=== PATIENT | male | born 1965 | race Caucasian/White ===

== ENCOUNTER 2019-03-01 11:14 | Day surgery (SDC) | payer OTHER, SELFPAY ==
[2019-03-01 11:48] VITALS: BP 143/89; PULSE 70; RESP 16; TEMP 36.8; O2SAT 97; BMI 27.0
[2019-03-01] MEDS: SODIUM CHLORIDE 0.9% 1,000 ML 100 ML IV (12:08)
--- NOTE | 2019-03-01 12:32 | PM.HP.1 ---
History of Present Illness Date Patient Seen: 03/01/19 Time Patient Seen: 12:32 Chief complaint: [id number] Narrative: Colorectal cancer screening. First colonoscopy Patient History Medical History (Updated 03/01/19 @ 12:32 by Mayela Lara MD) GERD (gastroesophageal reflux disease) (Acute) Surgical History (Updated 12/07/17 @ 05:45 by Elise Borrego MD) Status post tonsillectomy and adenoidectomy Social History household members: spouse Family & Social History Social History: household members spouse Meds Home Medications Medication Instructions Recorded Confirmed Type pantoprazole 40 mg DAILY 03/01/19 03/01/19 History Allergies Allergy/AdvReac Type Severity Reaction Status Date / Time No Known Drug Allergies Allergy Verified 03/01/19 11:47 Exam Vital Signs (past 8 hours): - 03/01/19 11:48 Temperature 98.2 F Pulse Rate 70 Respiratory Rate 16 Blood Pressure 143/89 H Pulse Oximetry 97 Oxygen Delivery Method Room Air Narrative Exam Narrative: Oropharynx free of lesions Chest clear to auscultation percussion Cardiac exam reveals no S3 or murmur Assessment & Plan Assessment & Plan narrative: For screening colonoscopy. Risks, benefits, alternatives have been explained.
--- NOTE | 2019-03-01 12:33 | PM.OP.ENDO ---
Operative Date/Time/Diagnoses Date of procedure: 03/01/19 Time of procedure: 12:33 Pre-op diagnosis: See indication and findings Procedure & Clinicians Study performed: Colonoscopy Same procedure as scheduled: Yes Indications: 1st screening colonoscopy Surgeon: Mayela Lara Procedure Notes Procedure in detail: After informed consent was obtained the patient was placed in left lateral decubitus position. The video colonoscope was introduced the rectum slowly advanced to the cecum. On slow withdrawal mucosa was carefully examined. The scope was removed. The patient tolerated procedure well. Preparation was good. Blood loss none Complications none Sedation Total sedation time 16 minutes Versed 9 mg fentanyl 100 micro g IV titration Findings 1. Normal colonoscopy to cecum Patient will not need follow-up colonoscopy for 10 years.
[2019-03-01] MEDS: MIDAZOLAM 5 MG/5 ML VIAL IV (14:03)
[2019-03-01] MEDS: fentaNYL 250 MCG/5 ML INJ IV (14:03)
[2019-03-01 14:07] VITALS: BP 114/74; PULSE 75; RESP 13; TEMP 36.6; O2SAT 96
[2019-03-01 14:11] VITALS: BP 127/84; PULSE 77; RESP 16; O2SAT 96
[2019-03-01 14:17] VITALS: BP 123/91; PULSE 77; RESP 17; O2SAT 96
--- NOTE | 2019-03-01 14:19 | SUR.PHASEI ---
Wide awake, talking since arrival to PACU. HOB elevated, drinking water. Denies discomfort.
[2019-03-01 14:21] VITALS: BP 127/90; PULSE 71; RESP 14; TEMP 36.9; O2SAT 97
== END 2019-03-01 14:40 | disposition home or self-care (01) ==
LOC: ENDO 11:16
PROVIDERS: PCP General Practice; Visit Provider Internal Medicine Gastroenterology
PROC: 0DJD8ZZ Inspection of Lower Intestinal Tract, Via Natural or Artificial Opening Endoscopic (ICD-10-PCS; CPT 45378; principal; 2019-03-01 13:30)
DX: Z12.11 Encounter for screening for malignant neoplasm of colon (principal)
CPT/HCPCS: 45378; J2250; J3010

== ENCOUNTER → 2021-07-24 09:43 | Outpatient (CLI) | payer OTHER, SELFPAY ==
--- NOTE | 2021-07-24 09:46 | DI.US.S_ITS ---
PROCEDURE: US ABDOMEN LIMITED INDICATIONS: RULE OUT GALLSTONES TECHNIQUE: Real-time focused scanning was performed of the abdomen, with image documentation. COMPARISON: None. FINDINGS: Liver is normal in size. Liver has diffusely increased echogenicity. Main portal vein is patent with hepatopetal flow. Main portal vein measures 14.5 millimeters. Gallbladder is sonographically normal. No gallstones. No gallbladder wall thickening. No pericholecystic fluid. No sonographic Farr sign. Biliary tree is nondilated. Common bile duct measures 4.5 millimeters. Head and body pancreas are sonographically normal. Tail of pancreas is not seen due to bowel gas cannot be evaluated. IMPRESSION: 1. No sonographic evidence of cholelithiasis or cholecystitis. If there is continued clinical concern for cholecystitis, a nuclear medicine HIDA scan should be considered for further evaluation. 2. Echogenic liver. Finding typically represents fatty infiltration; however, finding is nonspecific and correlation with clinical and laboratory findings is recommended to exclude other etiologies including hepatic cirrhosis. Dictated by: Cathy Olmos MD, PhD on 07/24/2021 at 12:08 Approved by: Cathy Olmos MD, PhD on 07/24/2021 at 12:09
== END ==
PROVIDERS: Referring Provider Surgery; Visit Provider Surgery
DX: R10.9 Unspecified abdominal pain (principal)
CPT/HCPCS: 76705

== ENCOUNTER → 2021-08-05 14:17 | Outpatient (CLI) | payer OTHER, SELFPAY ==
--- NOTE | 2021-08-05 14:19 | DI.CT.S_ITS ---
PROCEDURE: CT ABDOMEN PELVIS W CON INDICATIONS: Abdominal pain TECHNIQUE: After the administration of oral and IV contrast, axial sections were acquired from the lung bases to the pubic symphysis. Coronal and sagittal reformats were performed. For radiation dose reduction, the following was used: automated exposure control, adjustment of mA and/or kV according to patient size. COMPARISON: [facility], , US ABDOMEN LIMITED, 07/24/2021, 9:50. FINDINGS: Image quality: Excellent. Lung bases: Unremarkable. Heart: No significant findings. ABDOMEN: Liver: Normal size. Mild hepatic steatosis. Gallbladder: Unremarkable. Biliary ducts: Unremarkable. Pancreas: There is possible mass or an artifact in the area of the uncinate process or the horizontal segment of the duodenum. Spleen: Unremarkable. Adrenal Glands: Unremarkable. Kidneys and Ureters: Unremarkable. Stomach and Bowel: There is possible mass or an artifact involving the horizontal segment of duodenum or the uncinate process of pancreas. Stomach, small bowel loops, and colon are normal in caliber. A few colonic diverticula are present. No diverticulitis. Peritoneum: No abnormal intraperitoneal fluid. No free air. Ventral Wall: No hernia. Abdominal Nodes: No retroperitoneal or mesenteric adenopathy by size criteria. Vessels: Aorta and inferior vena cava are normal in size. Mild atherosclerotic calcification. PELVIS: Pelvic Organs: Prostate is prominent in size. Bladder: Unremarkable. Pelvic Nodes: No enlarged lymph nodes. Miscellaneous: No inguinal hernias are seen. Bones: Mild scoliosis and degenerative changes in lumbar spine.. IMPRESSION: 1. Question mass or an artifact in the area of the uncinate process of pancreas. Pancreatic protocol CT or MRI is recommended for follow-up evaluation. 2. Mild hepatic steatosis. 3. Mild diverticulosis without diverticulitis. Dictated by: Teo Beth M.D. on 08/05/2021 at 15:38 Approved by: Teo Beth M.D. on 08/05/2021 at 15:51
== END ==
PROVIDERS: PCP Physician Assistant; Referring Provider Surgery; Visit Provider Surgery
DX: K76.0 Fatty (change of) liver, not elsewhere classified (principal); K57.90 Diverticulosis of intestine, part unspecified, without perforation or abscess without bleeding; R10.9 Unspecified abdominal pain; M41.9 Scoliosis, unspecified; M47.816 Spondylosis without myelopathy or radiculopathy, lumbar region
CPT/HCPCS: 74177; Q9967

== ENCOUNTER → 2021-08-15 11:09 | Outpatient (CLI) | payer OTHER, SELFPAY ==
--- NOTE | 2021-08-15 11:20 | DI.CT.S_ITS ---
PROCEDURE: CT ABDOMEN PELVIS W CON INDICATIONS: Questionable pancreatic finding on 08/05 CTAP TECHNIQUE: After the administration of oral and IV contrast, axial sections were acquired from the lung bases to the pubic symphysis. Coronal and sagittal reformats were performed. For radiation dose reduction, the following was used: automated exposure control, adjustment of mA and/or kV according to patient size. COMPARISON: [facility], CT, CT ABDOMEN PELVIS W CON, 08/05/2021, 15:19. FINDINGS: Image quality: Excellent. Lung bases: Unremarkable. Heart: No significant findings. ABDOMEN: Liver: Mild hepatic steatosis is again seen, no discrete hepatic lesion. There is hepatomegaly. Gallbladder: Within normal limits. Biliary ducts: Unremarkable. Pancreas: Pancreas is normal in size and show normal contrast enhancement. No discrete soft tissue mass or area of abnormal enhancement is seen in the uncinate process. Previous CT finding of questionable mass in this region likely represent volume averaging between pancreatic parenchyma and adjacent superior wall of duodenum. Pancreatic body and tail are within normal limits. No peripancreatic fat stranding or fluid collection. Spleen: Unremarkable. Adrenal Glands: Unremarkable. Kidneys and Ureters: Unremarkable. Stomach and Bowel: There is a small hiatal hernia. No bowel obstruction or abnormal bowel wall thickening. Mild fecal stasis in the colon is seen. No mesenteric fat stranding. No abscess collection. Peritoneum: No abnormal intraperitoneal fluid. No free air. Ventral Wall: No hernia. Abdominal Nodes: No retroperitoneal or mesenteric adenopathy by size criteria. Vessels: Aorta and inferior vena cava are normal in size. PELVIS: Pelvic Organs: Mild prominence of prostate gland is again seen. Bladder: Mild diffuse bladder wall thickening is noted on the current study, no discrete bladder wall mass is seen. Pelvic Nodes: No enlarged lymph nodes. Miscellaneous: No inguinal hernias are seen. Bones: No suspicious bony lesion. No acute vertebral body compression fracture. IMPRESSION: 1. No discrete pancreatic mass is identified. Previous CT finding of soft tissue density involving uncinate process of pancreas likely represent volume averaging artifact. 2. Hepatomegaly and mild hepatic steatosis, no discrete hepatic lesion. 3. No abnormal bowel wall thickening. No free fluid or free air. Colonic diverticulosis is again seen without CT evidence of acute diverticulitis. 4. Enlarged prostate gland with mild mass effect on floor of urinary bladder. Questionable diffuse bladder wall thickening which may be due to under distension, low-grade cystitis cannot be entirely excluded. Dictated by: Richard Kauffman M.D. on 08/15/2021 at 12:04 Approved by: Richard Kauffman M.D. on 08/15/2021 at 12:08
== END ==
PROVIDERS: PCP Physician Assistant; Referring Provider Surgery; Visit Provider Surgery
DX: R10.9 Unspecified abdominal pain (principal); K76.0 Fatty (change of) liver, not elsewhere classified; N40.0 Benign prostatic hyperplasia without lower urinary tract symptoms
CPT/HCPCS: 74177

== ENCOUNTER → 2021-09-12 10:08 | Outpatient (CLI) | payer OTHER, SELFPAY | PROVIDERS: PCP Physician Assistant; Referring Provider Physician Assistant; Visit Provider Physician Assistant | DX: K90.0 Celiac disease (principal); E55.9 Vitamin D deficiency, unspecified | CPT/HCPCS: 77080 ==